=== PATIENT | female | born 1985 | race Two or more races ===

== ENCOUNTER 2024-09-01 10:52 | Outpatient (RCR) | payer MEDICAID, SELFPAY ==
--- NOTE | 2024-09-01 11:20 | PT.ODS1RPT ---
PT OP Progress/Discharge Note Date of Service: Right Shoulder Pain Progress Note/DC Note Progress Note/Discharge Note: DC Note Patient Information Visit Reasons: CHRONIC RIGHT SHOULDER Medical Diagnosis: Right Shoulder Pain Treatment Dx #1: Right Shoulder Pain Service Discharge Date: 09/01/24 Status Subjective: Pt's shoulder continues to hurt and minimal has change with physical therapy. Due to pain Pt has limitation with lifting, overhead motions, chores, work duties, and performing recreational activities. Objective: Right Shoulder AROM: all motions are WFL Right Shoulder MMTs: grossly 3+/5 Right Scapula MMTs: grossly 3+/5 HBB: Thumb at gluteal fold Assessment: Pt demonstrate functional right shoulder mobility and strength, however, no change in pain leading to difficulty with ADLs. Pt will no longer benefit from physical therapy due to minimal progression towards goals. Pt was instructed on HEP last session and educated to continue exercises to maintain overall mobility. Pt performed all exercises safely, thank you for your referrals. Plan: D/C home with HEP and follow up with MD STARR Procedure Charges Therapeutic Exercise 30 minutes: Yes
== END 2024-09-26 23:59 | disposition home or self-care (01) ==
LOC: CPTX 10:52
PROVIDERS: PCP Nurse Practitioner Family; Referring Provider Nurse Practitioner Family; Visit Provider Nurse Practitioner Family
DX: M25.511 Pain in right shoulder (principal); R53.1 Weakness; G89.29 Other chronic pain
CPT/HCPCS: 97110

== ENCOUNTER → 2024-10-14 | Outpatient (CLI) | payer MEDICAID, SELFPAY ==
--- NOTE | 2024-10-14 09:26 | XR_ITS ---
Examination: Abdomen 2 views TECHNIQUE: AP upright AP supine abdomen 2 views Exam date and time: October 14, 2024 0948 hours INDICATIONS: Left-sided abdominal pain and diarrhea beginning one month ago. FINDINGS: Nonobstructive bowel gas pattern. Minimal small bowel ileus left abdomen No obstruction No free air No renal or ureteral calculi IMPRESSION: Nonobstructive bowel gas
== END | disposition home or self-care (01) ==
LOC: SDIM 09:09
PROVIDERS: PCP Nurse Practitioner Family; Referring Provider Nurse Practitioner Family; Visit Provider Nurse Practitioner Family
DX: R10.84 Generalized abdominal pain (principal); R19.7 Diarrhea, unspecified
CPT/HCPCS: 74019

== ENCOUNTER → 2024-12-11 | Outpatient (CLI) | payer MEDICAID, SELFPAY ==
--- NOTE | 2024-12-11 08:00 | XR_ITS ---
Examination: Screening digital mammography, bilateral Computer aided detection 3-D breast Tomosynthesis, bilateral Date and time of exam: December 11, 2024 0749 hrs. No priors Indication: Screening Technique: Nonmagnified MLO, CC views of the breasts to been obtained, reconstructed from 3-D Tomosynthesis images. R2 computer aided detection program utilized for evaluation of suspicious masses and/or abnormal calcifications. 3-D Tomosynthesis images obtained. Findings: The breasts are heterogeneously dense, which may obscure small masses Benign calcifications 12 mm focal asymmetry upper outer left breast Impression: BI-RADS Category 0: Incomplete: Need additional imaging evaluation 12 mm focal asymmetry upper outer left breast, recommend follow-up spot tomographic views of this asymmetry as well as bilateral breast sonography to complete workup
== END | disposition home or self-care (01) ==
PROVIDERS: Referring Provider Nurse Practitioner Family; Visit Provider Nurse Practitioner Family
DX: Z12.31 Encounter for screening mammogram for malignant neoplasm of breast (principal); N64.89 Other specified disorders of breast
CPT/HCPCS: 77063; 77067

== ENCOUNTER → 2024-12-15 | Outpatient (CLI) | payer MEDICAID, SELFPAY ==
--- NOTE | 2024-12-15 10:15 | XR_ITS ---
Examination: Abdomen sonogram, complete Date and time of exam: December 15, 2024 1005 hours INDICATIONS: Right upper abdominal pain beginning several months ago. Technique: Multiple real-time grayscale transabdominal sonographic images of the abdomen have been obtained. Findings: Normal gallbladder Normal common bile duct 0.4 cm Pancreatic head 2.6 cm Aorta not enlarged Liver 12.1 cm fatty infiltration smooth contour no focal liver lesions Normal hepatopedal portal venous oh Patent IVC Right kidney 12.5 x 5.6 x 4.6 cm renal cortex 2.1 cm Left kidney 12.2 x 5.2 x 5.6 cm cortex 2.5 cm Mild bilateral renal parenchymal scar formation Spleen 12.2 cm IMPRESSION: Normal gallbladder Normal common bile duct Fatty liver
== END | disposition home or self-care (01) ==
LOC: CDIM 09:48
PROVIDERS: PCP Nurse Practitioner Family; Referring Provider Nurse Practitioner Family; Visit Provider Nurse Practitioner Family
DX: K76.0 Fatty (change of) liver, not elsewhere classified (principal)
CPT/HCPCS: 76700

== ENCOUNTER → 2025-02-05 | Outpatient (CLI) | payer MEDICAID, SELFPAY ==
--- NOTE | 2025-02-05 14:15 | XR_ITS ---
Examination: Breast ultrasound complete, bilateral Date and time of exam: February 05, 2025 1406 hrs. Indications: Mammogram December 11, 2024 12 mm focal asymmetry upper outer left breast Technique: Real-time grayscale ultrasonographic imaging bilateral breasts, including all 4 quadrants as well as nipple retroareolar and axillary regions. Findings: Sonographic images right and left breast demonstrated no cystic or solid masses Impression: BI-RADS Category 1: Negative study
== END | disposition home or self-care (01) ==
PROVIDERS: PCP Nurse Practitioner Family; Referring Provider Nurse Practitioner Family; Visit Provider Nurse Practitioner Family
DX: R92.8 Other abnormal and inconclusive findings on diagnostic imaging of breast (principal)
CPT/HCPCS: 76641

== ENCOUNTER → 2025-03-25 | Outpatient (CLI) | payer MEDICAID, SELFPAY ==
--- NOTE | 2025-03-25 13:30 | XR_ITS ---
Examination: Diagnostic digital mammography, unilateral, left Computer aided detection 3-D breast Tomosynthesis, unilateral Date and time of exam: March 25, 2025 1306 hours INDICATIONS: Mammogram December 11, 2024 12 mm focal asymmetry upper outer left breast Technique: Nonmagnified MLO, CC views of the left breast have been obtained, reconstructed from 3-D Tomosynthesis images. R2 computer aided detection program utilized for evaluation of suspicious masses and/or abnormal calcifications. 3-D Tomosynthesis images obtained. Findings: The breast is heterogeneously dense, which may obscure small masses Focal asymmetry remains upper outer left breast, probably benign Impression: BI-RADS category 3: Probably benign findings Recommend 1 additional 6 month left mammogram follow-up
== END | disposition home or self-care (01) ==
PROVIDERS: PCP Nurse Practitioner Family; Referring Provider Nurse Practitioner Family; Visit Provider Nurse Practitioner Family
DX: R92.332 Mammographic heterogeneous density, left breast (principal)
CPT/HCPCS: 77061; 77065; G0279